=== PATIENT | female | born 1975 | race African-American/Black ===

== ENCOUNTER 2018-09-15 20:49 | Emergency (ER) | payer SELFPAY ==
[2018-09-15 21:56] LABS: Protime INR 0.92
[2018-09-15 22:13] LABS: ALT/SGPT 24 U/L (12-78); AST/SGOT 23 U/L (15-37); Albumin 3.8 g/dL (3.4-5.0); Alkaline Phosphatase 61 U/L (45-117); BUN Blood Urea Nitrogen 7 mg/dL (7-18); Bicarbonate 25 mmol/L (21-32); Bilirubin Direct 0.1 mg/dL (0-0.2); Bilirubin Total 0.4 mg/dL (0.2-1.0); Glucose Level 85 mg/dL (74-106); Lipase 126 U/L (73-393); Magnesium 1.9 mg/dL (1.8-2.4); NT PRO-BNP 72 pg/mL (<125); Potassium 3.6 mmol/L (3.5-5.1); Protein, Total 7.5 g/dL (6.4-8.2); Sodium Level 142 mmol/L (136-145); Troponin (Emerg Dept Use Only) < 0.02 ng/mL (0.0-0.045)
[2018-09-15] MEDS ORDERED: METOCLOPRAMIDE 10 MG/2mL INJ ONE (22:35)
[2018-09-15] MEDS ORDERED: DIPHENHYDRAMINE 50 MG/ML VIAL ONE (22:35)
[2018-09-15] MEDS ORDERED: FENTANYL CITR 100 MCG/2 ML ONE (22:35)
[2018-09-15 22:59] LABS: Absolute Lymphocytes (CBC) 1.7 K/uL (0.7-4.9); Absolute Monocytes 0.5 K/uL (0.1-1.3); Absolute Neutrophil 2.4 K/uL (1.8-8.0); Basophils % 0.5 % (0-1.3); Eosinophils % 0.9 % (0-4.4); Hematocrit 40.6 % (36.0-45.0); Lymphocytes % 36.6 % (15.3-44.8); MPV 8.8 fL (7.6-11.3)
[2018-09-16] MEDS ORDERED: ONDANSETRON 4 MG/2 ML VIAL ONE (01:32)
[2018-09-16] MEDS ORDERED: MEPERIDINE HCL 50 MG/ML AMP ONE (01:32)
--- NOTE | 2018-09-16 02:16 | EDPHYS ---
Physician Documentation [facility] Name: Dorothy Mohan Age: 43 yrs Sex: Female : 1975 Arrival Date: 09/15/2018 Time: 20:51 Bed 8 Private MD: ED Physician Joe Caban HPI: 09/15 23:02 This 43 yrs old Black Female presents to ER via Wheelchair with complaints of Headache, jr8 Abdominal Pain. 23:02 Patient came in with complaints of headache and abdominal pain to upper abdomen. jr8 History of Arnold Chiari malformation and has chronic headaches but feels that these are worse. Does not usually have abdominal pain . Onset: The symptoms/episode began/occurred acutely, today. Severity of symptoms: At their worst the symptoms were moderate in the emergency department the symptoms are unchanged. The patient has not experienced similar symptoms in the past. The patient has not recently seen a physician. 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 - Social history:: Smoking status: Patient uses tobacco products, denies chronic smoking, but will smoke occasionally. - Ebola Screening: : Patient negative for fever greater than or equal to 101.5 degrees Fahrenheit, and additional compatible Ebola Virus Disease symptoms. ROS: 23:02 Eyes: Negative for injury, pain, redness, and discharge, ENT: Negative for injury, jr8 pain, and discharge, Neck: Negative for injury, pain, and swelling, Cardiovascular: Negative for chest pain, palpitations, and edema, Respiratory: Negative for shortness of breath, cough, wheezing, and pleuritic chest pain, Back: Negative for injury and pain, MS/Extremity: Negative for injury and deformity, Skin: Negative for injury, rash, and discoloration. 23:02 Abdomen/GI: Positive for abdominal pain, Negative for nausea, vomiting, and diarrhea, abdominal distension, anorexia, dysphagia, hematemesis, black/tarry stool, rectal pain, rectal bleeding, bowel incontinence, flatulence. 23:02 Neuro: Positive for headache, Negative for altered mental status, dizziness, gait disturbance, hearing loss, loss of consciousness, numbness, seizure activity, speech changes, syncope, near syncope, tingling, tinnitus, tremor, visual changes, weakness. Exam: 23:04 Eyes: Pupils equal round and reactive to light, extra-ocular motions intact. Lids and jr8 lashes normal. Conjunctiva and sclera are non-icteric and not injected. Cornea within normal limits. Periorbital areas with no swelling, redness, or edema. ENT: Nares patent. No nasal discharge, no septal abnormalities noted. Tympanic membranes are normal and external auditory canals are clear. Oropharynx with no redness, swelling, or masses, exudates, or evidence of obstruction, uvula midline. Mucous membranes moist. Neck: Trachea midline, no thyromegaly or masses palpated, and no cervical lymphadenopathy. Supple, full range of motion without nuchal rigidity, or vertebral point tenderness. No Meningismus. Cardiovascular: Regular rate and rhythm with a normal S1 and S2. No gallops, murmurs, or rubs. Normal PMI, no JVD. No pulse deficits. Respiratory: Lungs have equal breath sounds bilaterally, clear to auscultation and percussion. No rales, rhonchi or wheezes noted. No increased work of breathing, no retractions or nasal flaring. Back: No spinal tenderness. No costovertebral tenderness. Full range of motion. MS/ Extremity: Pulses equal, no cyanosis. Neurovascular intact. Full, normal range of motion. Neuro: Awake and alert, GCS 15, oriented to person, place, time, and situation. Cranial nerves II-XII grossly intact. Motor strength 5/5 in all extremities. Sensory grossly intact. Cerebellar exam normal. Normal gait. 23:04 Abdomen/GI: Inspection: abdomen appears normal, Bowel sounds: active, all quadrants, Palpation: soft, in all quadrants, mild abdominal tenderness, in the abdomen diffusely, mass, is not appreciated, rebound tenderness, is not appreciated, voluntary guarding, is not appreciated, involuntary guarding, is not appreciated, no appreciated organomegaly, Indicators: McBurney's point is not tender, Peter's sign is negative, Rovsing's sign is negative, Liver: tenderness, is not appreciated. 23:04 Skin: Patient has alopecia like region to right side of head that has been there for some time per her. Mild erythema and scaling to skin . Vital Signs: 21:13 BP 152 / 125; Pulse 96; Resp 20 S; Pulse Ox 100% on R/A; Weight 86.18 kg (R); Height 5 [facility] ft. 2 in. (157.48 cm) (R); Pain 10/10; 21:40 Temp 98.8(O); tl2 21:58 BP 168 / 99; Pulse 82; Resp 20; Pulse Ox 98% on R/A; tl2 22:46 BP 141 / 83; Pulse 69; Resp 18; Pulse Ox 100% on R/A; tl2 23:00 BP 141 / 94; Pulse 66; Resp 16 S; Pulse Ox 98% on R/A; d3 09/16 01:30 BP 161 / 90; Pulse 63; Resp 17 S; Pulse Ox 100% on R/A; d3 02:48 BP 164 / 91; Pulse 65; Resp 16 S; Pulse Ox 98% on R/A; [facility] 09/15 21:13 Body Mass Index 34.75 (86.18 kg, 157.48 cm) [facility] MDM: 09/15 21:31 Patient medically screened. [facility] 09/16 02:14 Data reviewed: vital signs, nurses notes, lab test result(s), EKG, radiologic studies, [facility] CT scan, plain films, and as a result, I will discharge patient. Data interpreted: Pulse oximetry: on room air is 100 %. Interpretation: normal. Counseling: I had a detailed discussion with the patient and/or guardian regarding: the historical points, exam findings, and any diagnostic results supporting the discharge/admit diagnosis, lab results, radiology results, the need for outpatient follow up, a headlight adjuster, a family practitioner, to return to the emergency department if symptoms worsen or persist or if there are any questions or concerns that arise at home. Response to treatment: the patient's symptoms have markedly improved after treatment. 09/15 21:31 Order name: Basic Metabolic Panel [facility] 09/15 21:31 Order name: CBC with Diff; Complete Time: 23:05 [facility] 09/15 21:31 Order name: LFT's [facility] 09/15 21:31 Order name: Magnesium [facility] 09/15 21:31 Order name: NT PRO-BNP [facility] 09/15 21:31 Order name: PT-INR; Complete Time: 22:02 [facility] 09/15 21:31 Order name: Troponin (emerg Dept Use Only); Complete Time: 22:14 [facility] 09/15 21:31 Order name: XRAY Chest (1 view) [facility] 09/15 21:31 Order name: Lipase; Complete Time: 22:14 [facility] 09/15 21:32 Order name: Basic Metabolic Panel; Complete Time: 22:14 [facility] 09/15 21:32 Order name: Liver (Hepatic) Function; Complete Time: 22:14 [facility] 09/15 21:32 Order name: Magnesium; Complete Time: 22:14 [facility] 09/15 21:32 Order name: NT PRO-BNP; Complete Time: 22:14 [facility] 09/15 23:06 Order name: CT Abd/Pelvis - W/Contrast [facility] 09/15 21:31 Order name: EKG; Complete Time: 21:32 09/15 21:31 Order name: Cardiac monitoring; Complete Time: 21:55 [facility] 09/15 21:31 Order name: EKG - Nurse/Tech; Complete Time: 21:55 [facility] 09/15 21:31 Order name: IV Saline Lock; Complete Time: 21:39 [facility] 09/15 21:31 Order name: Labs collected and sent; Complete Time: 21:39 [facility] 09/15 21:31 Order name: O2 Per Protocol; Complete Time: 21:39 [facility] 09/15 21:31 Order name: O2 Sat Monitoring; Complete Time: 21:39 [facility] Administered Medications: 09/15 22:44 Drug: Reglan 10 mg Route: IVP; Site: right forearm; tl2 23:12 Follow up: Response: No adverse reaction; No change in condition tl2 22:44 Drug: Benadryl 25 mg Route: IVP; Site: right forearm; tl2 23:12 Follow up: Response: No adverse reaction; No change in condition tl2 22:45 Drug: fentaNYL (PF) 50 mcg Route: IVP; Site: right forearm; tl2 23:13 Follow up: Response: No adverse reaction; Pain is unchanged, physician notified tl2 23:11 Drug: fentaNYL (PF) 50 mcg Route: IVP; Site: right forearm; tl2 09/16 02:49 Follow up: Response: No adverse reaction jd3 01:29 Drug: Demerol 50 mg Route: IVP; Site: right antecubital; jd3 02:49 Follow up: Response: No adverse reaction jd3 01:29 Drug: Zofran 4 mg Route: IVP; Site: right antecubital; jd3 02:50 Follow up: Response: No adverse reaction jd3 Disposition: 03:40 Co-signature as Attending Physician, Joe Caban MD Available for consultation at ps1 all times . Disposition: 09/16/18 02:15 Discharged to Home. Impression: Migraine, Generalized abdominal pain, Rash and other nonspecific skin eruption. - Condition is Stable. - Discharge Instructions: Migraine Headache, Rash. - Prescriptions for Tylenol- Codeine #3 300-30 mg Oral Tablet - take 2 tablets by ORAL route every 6 hours As needed; 12 tablet. Hydrocortisone 0.5 % Topical Cream - apply 1 application by TOPICAL route every 12 hours As needed; 30 gram. - Medication Reconciliation Form, Thank You Letter, Antibiotic Education, Prescription Opioid Use form. - Follow up: Private Physician; When: 2 - 3 days; Reason: Recheck today's complaints, Continuance of care, Re-evaluation by your physician. - Problem is new. - Symptoms have improved. Signatures: Dispatcher [employer] EDMS Denis Ayoub PA PA jr8 Elsy Jaimes RN RN tl2 Reid Martin RN RN Joe Khanna MD MD ps1 Corrections: (The following items were deleted from the chart) 02:50 02:15 09/16/2018 02:15 Discharged to Home. Impression: Migraine; Generalized abdominal jd3 pain; Rash and other nonspecific skin eruption. Condition is Stable. Forms are Medication Reconciliation Form, Thank You Letter, Antibiotic Education, Prescription Opioid Use. Follow up: Private Physician; When: 2 - 3 days; Reason: Recheck today's complaints, Continuance of care, Re-evaluation by your physician. Problem is new. Symptoms have improved. jr8
--- NOTE | 2018-09-16 02:16 | ER ---
Nurse's Notes [facility] Name: Dorothy Mohan Age: 43 yrs Sex: Female : 1975 Arrival Date: 09/15/2018 Time: 20:51 Bed 8 Private MD: Diagnosis: Migraine;Generalized abdominal pain;Rash and other nonspecific skin eruption Presentation: 09/15 21:11 Presenting complaint: Patient states: "I am having a pins and needles headache and jd3 epigastric pain with nausea and vomiting.". Transition of care: patient was not received from another setting of care. Onset of symptoms was September 15, 2018. Risk Assessment: Do you want to hurt yourself or someone else? Patient reports no desire to harm self or others. Initial Sepsis Screen: Does the patient meet any 2 criteria? No. Patient's initial sepsis screen is negative. Does the patient have a suspected source of infection? No. Patient's initial sepsis screen is negative. Care prior to arrival: None. 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 - Social history:: Smoking status: Patient uses tobacco products, denies chronic smoking, but will smoke occasionally. - Ebola Screening: : Patient negative for fever greater than or equal to 101.5 degrees Fahrenheit, and additional compatible Ebola Virus Disease symptoms. Screenin:58 Abuse screen: Denies threats or abuse. Nutritional screening: No deficits noted. tl2 Tuberculosis screening: No symptoms or risk factors identified. Fall Risk None identified. Assessment: 21:58 General: Appears in no apparent distress. uncomfortable, Behavior is crying, restless. tl2 Pain: Complains of pain in epigastric area Pain does not radiate. Pain: Noted to be grimacing, guarding, moaning. Neuro: Level of Consciousness is awake, alert, obeys commands, Oriented to person, place, time, situation. Cardiovascular: Denies chest pain. Respiratory: Airway is patent Respiratory effort is even, unlabored, Respiratory pattern is regular, symmetrical. GI: Reports nausea, vomiting. : No signs and/or symptoms were reported regarding the genitourinary system. Derm: Skin is pink, warm \\T\\ dry. 09/16 01:30 Reassessment: Patient appears in no apparent distress at this time. No changes from [facility] previously documented assessment. Patient and/or family updated on plan of care and expected duration. Pain level reassessed. Patient is alert, oriented x 3, equal unlabored respirations, skin warm/dry/pink. 02:48 Reassessment: Patient appears in no apparent distress at this time. Patient and/or [facility] family updated on plan of care and expected duration. Pain level reassessed. Patient is alert, oriented x 3, equal unlabored respirations, skin warm/dry/pink. Patient states feeling better. Vital Signs: 09/15 21:13 BP 152 / 125; Pulse 96; Resp 20 S; Pulse Ox 100% on R/A; Weight 86.18 kg (R); Height 5 j ft. 2 in. (157.48 cm) (R); Pain 10/10; 21:40 Temp 98.8(O); tl2 21:58 BP 168 / 99; Pulse 82; Resp 20; Pulse Ox 98% on R/A; tl2 22:46 BP 141 / 83; Pulse 69; Resp 18; Pulse Ox 100% on R/A; tl2 23:00 BP 141 / 94; Pulse 66; Resp 16 S; Pulse Ox 98% on R/A; jd3 09/16 01:30 BP 161 / 90; Pulse 63; Resp 17 S; Pulse Ox 100% on R/A; jd3 02:48 BP 164 / 91; Pulse 65; Resp 16 S; Pulse Ox 98% on R/A; jd3 09/15 21:13 Body Mass Index 34.75 (86.18 kg, 157.48 cm) [facility] ED Course: 09/15 20:51 Patient arrived in ED. mr 21:12 Triage completed. jd3 21:14 Arm band placed on. jd3 21:31 Denis Ayoub PA is PHCP. jr8 21:31 Joe Caban MD is Attending Physician. jr8 21:39 Elsy Jaimes RN is Primary Nurse. tl2 21:54 XRAY Chest (1 view) In Process Unspecified. EDMS 21:58 Patient has correct armband on for positive identification. Placed in gown. Bed in low tl2 position. Call light in reach. Side rails up X 1. Adult w/ patient. 21:58 Inserted saline lock: 22 gauge in right forearm, using aseptic technique. Blood tl2 collected. 09/16 00:17 Radiology exam delayed due to test not completed at this time. kw1 00:[address] via wheelchair. kw1 00:51 CT Abd/Pelvis - W/Contrast In Process Unspecified. EDMS 00:52 CT completed. Patient tolerated procedure well. Patient moved back from CT. kw1 02:48 No provider procedures requiring assistance completed. IV discontinued, intact, jd3 bleeding controlled, No redness/swelling at site. Pressure dressing applied. Administered Medications: 09/15 22:44 Drug: Reglan 10 mg Route: IVP; Site: right forearm; tl2 23:12 Follow up: Response: No adverse reaction; No change in condition tl2 22:44 Drug: Benadryl 25 mg Route: IVP; Site: right forearm; tl2 23:12 Follow up: Response: No adverse reaction; No change in condition tl2 22:45 Drug: fentaNYL (PF) 50 mcg Route: IVP; Site: right forearm; tl2 23:13 Follow up: Response: No adverse reaction; Pain is unchanged, physician notified tl2 23:11 Drug: fentaNYL (PF) 50 mcg Route: IVP; Site: right forearm; tl2 09/16 02:49 Follow up: Response: No adverse reaction jd3 01:29 Drug: Demerol 50 mg Route: IVP; Site: right antecubital; jd3 02:49 Follow up: Response: No adverse reaction jd3 01:29 Drug: Zofran 4 mg Route: IVP; Site: right antecubital; jd3 02:50 Follow up: Response: No adverse reaction jd3 Outcome: 02:15 Discharge ordered by jrAzucena 02:48 Discharged to home ambulatory, with family. jd3 02:48 Condition: stable 02:48 Discharge instructions given to patient, family, Instructed on discharge instructions, follow up and referral plans. medication usage, Demonstrated understanding of instructions, follow-up care, medications, Prescriptions given X 2. 02:50 Patient left the ED. jd3 Signatures: Dispatcher [employer] ED Lorena Cameron mr LouiseDenis heard PA PA jr8 Elsy Jaimes RN RN tl2 Reid Martin RN RN jd3 Ronda Mitchell kw1 Corrections: (The following items were deleted from the chart) 00:31 00:30 BP 141 / 94; Pulse 66bpm; Resp 16bpm; Spontaneous; Pulse Ox 98% RA; irvin jamanda
--- NOTE | 2018-09-16 08:01 | RAD REPORT ---
EXAM DESCRIPTION: RAD - Chest Single View - 09/15/2018 9:56 pm CLINICAL HISTORY: Chest pain COMPARISON: July 2015 TECHNIQUE: AP portable chest image was obtained 2155 hours . FINDINGS: Lungs are clear. Heart and vasculature are normal. No measurable pleural effusion and no p neumothorax. No acute bony abnormality seen. No acute aortic findings suspected. IMPRESSION: No acute cardiopulmonary process. No significant interval change.
--- NOTE | 2018-09-16 08:49 | RAD REPORT ---
EXAM DESCRIPTION: CT - Abdomen Pelvis W Contrast - 09/16/2018 5:21 am CLINICAL HISTORY: Abdominal pain, epigastric pain A preliminary report was provided at the time of the study and reviewed prior to final report. COMPARISON: CT study July 2015 TECHNIQUE: Biphasic, helical CT imaging of the abdomen and pelvis was performed following 100 ml non -ionic IV contrast. No oral contrast administered. All CT scans are performed using dose optimization technique as appropriate and may include automated exposure control or mA/KV adjustment according to patient size. FINDINGS: No suspicious findings in the lung bases. The liver, spleen, and pancreas show no suspicious findings. Gallbladder and biliary tree are also wi thout suspicious finding. Symmetric renal function is seen with no hydronephrosis or suspicious renal mass. No pyelonephritis o r acute parenchymal process. No bladder abnormalities. No adrenal abnormalities. No dilated bowel loops or bowel wall thickening. No free air, free fluid or inflammatory stranding. No hernia, mass or bulky lymphadenopathy. A 3.3 centimeter right ovarian cyst is present. No solid mass of either ovary suspected. Patient has a prominent heterogeneous uterus. Pattern is generally similar to 2015. There is a dominant fundal fi broid approximately 4.5 cm in size. An additional lower left fibroid approximately 2.5 cm in size. Lo wer anterior fibroid approximately 16 mm in size. Endometrial stripe is displaced by the fundal fibro id. Overall, CT imaging is limited for assessing endometrial and myometrial findings. An acute proces s is doubtful given the provided clinical history. Follow-up can be obtained as clinical findings war rant. No acute or destructive bone process. Sclerotic changes are present in the L4 and L5 bodies not suspe cted to be malignant. Patient has a prominent lower lumbar degenerative pattern. There are sclerotic changes abutting the left SI joint. IMPRESSION: No obstruction, free air or surgically emergent finding. No acute CT abdomen or pelvis f inding noted. Patient has a prominent multi fibroid heterogeneous uterus. Pattern is not substantially different fr om 2015 though fibroids may have slightly enlarged. CT imaging is limited in the uterus. Followup end ovaginal pelvic sonography can be performed as warranted. A 3.3 centimeter right ovarian cyst is present with no suspicious characteristics. Patient has advanced for age lower lumbar spine degenerative change. There is left sacroiliitis curry es as well. The sclerotic changes in L4 and L5 are new from 2015 but still favored to be from a degen erative etiology rather than a blastic neoplastic process.
--- NOTE | 2018-09-16 11:24 | EKG ---
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
== END 2018-09-16 02:50 | disposition home or self-care (01) ==
LOC: ER 20:49
DX: G43.909 Migraine, unspecified, not intractable, without status migrainosus (principal); R10.84 Generalized abdominal pain; R21 Rash and other nonspecific skin eruption; Z72.0 Tobacco use; Z88.0 Allergy status to penicillin
CPT/HCPCS: 36415; 71045; 74177; 80048; 80076; 83690; 83735; 83880; 84484; 85025; 85610; 93005; J2175; J2405; J2765; J3010; Q9967

== ENCOUNTER 2018-09-16 18:57 | Emergency (ER) | payer SELFPAY ==
[2018-09-16] MEDS ORDERED: MAGNE/ALUM HYDROXD 30 ML UCUP ONE (22:30)
[2018-09-16] MEDS ORDERED: DIPHENHYDRAMINE 25 MG TAB/CAP ONE (22:31)
[2018-09-16] MEDS ORDERED: HALOPERIDOL LACT 5 MG/ML INJ ONE (22:31)
[2018-09-16] MEDS ORDERED: NA CHLORIDE 0.9% 500 ML ONE (22:31)
[2018-09-16] MEDS ORDERED: ONDANSETRON 4 MG/2 ML VIAL ONE (22:31)
[2018-09-16] MEDS ORDERED: LIDOCAINE VISCOUS 2% SOLN 15 ML UDC ONE (22:32)
[2018-09-16] MEDS ORDERED: DICYCLOMINE HCL 20 MG/2 ML AMP IM ONE (22:41)
[2018-09-16 23:04] LABS: Absolute Lymphocytes (CBC) 1.3 K/uL (0.7-4.9); Absolute Monocytes 0.5 K/uL (0.1-1.3); Absolute Neutrophil 3.1 K/uL (1.8-8.0); Basophils % 0.5 % (0-1.3); Eosinophils % 0.3 % (0-4.4); Hematocrit 43.9 % (36.0-45.0); Lymphocytes % 26.7 % (15.3-44.8); MPV 9.3 fL (7.6-11.3); Monocytes % 10.1 % (3.3-12.3); RBC Red Blood Cell Count 4.56 M/uL (3.86-4.86)
[2018-09-16 23:08] LABS: ALT/SGPT 26 U/L (12-78); AST/SGOT 20 U/L (15-37); Albumin 4.2 g/dL (3.4-5.0); Alkaline Phosphatase 70 U/L (45-117); BUN Blood Urea Nitrogen 5 mg/dL (7-18); Bicarbonate 23 mmol/L (21-32); Bilirubin Total 0.6 mg/dL (0.2-1.0); Glucose Level 90 mg/dL (74-106); Lipase 101 U/L (73-393); Potassium 3.7 mmol/L (3.5-5.1); Protein, Total 8.3 g/dL (6.4-8.2); Sodium Level 138 mmol/L (136-145)
--- NOTE | 2018-09-16 23:16 | ER ---
Nurse's Notes [facility] Name: Dorothy Mohan Age: 43 yrs Sex: Female : 1975 Arrival Date: 09/16/2018 Time: 19:00 Bed 11 Private MD: Diagnosis: Other abdominal pain Presentation: 09/16 19:20 Presenting complaint: Patient states: Headache with upper abdominal pain and nausea aj that did not improve after discharge from this ED last night. Transition of care: patient was not received from another setting of care. Onset of symptoms was September 13, 2018. Risk Assessment: Do you want to hurt yourself or someone else? Patient reports no desire to harm self or others. Initial Sepsis Screen: Does the patient meet any 2 criteria? No. Patient's initial sepsis screen is negative. Does the patient have a suspected source of infection? No. Patient's initial sepsis screen is negative. Care prior to arrival: None. 19:20 Method Of Arrival: Ambulatory aj 19:20 Acuity: STEPHANIE 4 aj Triage Assessment: 19:22 General: Appears in no apparent distress. uncomfortable, Behavior is calm, cooperative, aj appropriate for age. Pain: Complains of pain in face and abdomen. Neuro: Level of Consciousness is awake, alert, obeys commands, Oriented to person, place, time, situation, Appropriate for age Reports headache. Respiratory: Airway is patent Respiratory effort is even, unlabored, Respiratory pattern is regular, symmetrical. GI: Reports upper abdominal pain, nausea. Derm: Skin is intact, is healthy with good turgor, Skin is pink, warm \T\ dry. normal. 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 - Social history:: Smoking status: Patient uses tobacco products, smokes one-half pack cigarettes per day. - Ebola Screening: : Patient negative for fever greater than or equal to 101.5 degrees Fahrenheit, and additional compatible Ebola Virus Disease symptoms Patient denies exposure to infectious person Patient denies travel to an Ebola-affected area in the 21 days before illness onset No symptoms or risks identified at this time. Screenin:10 Abuse screen: Denies threats or abuse. Nutritional screening: No deficits noted. bb Tuberculosis screening: No symptoms or risk factors identified. Fall Risk None identified. Assessment: 21:10 General: Appears uncomfortable, obese, Behavior is cooperative, anxious. Pain: bb Complains of pain in abdomen Pain currently is 10 out of 10 on a pain scale. Neuro: Level of Consciousness is awake, alert, obeys commands, Oriented to person, place, time, situation. Cardiovascular: Heart tones S1 S2 present Capillary refill < 3 seconds Patient's skin is warm and dry. Respiratory: Respiratory effort is even, unlabored, Respiratory pattern is regular, Breath sounds are clear bilaterally. GI: Abdomen is round Bowel sounds present X 4 quads. Abd is soft X 4 quads Abdomen is tender to palpation in epigastric area. Derm: Skin is dry, Skin is normal, Skin temperature is warm. Musculoskeletal: Circulation, motion, and sensation intact. 22:30 Reassessment: Patient and/or family updated on plan of care and expected duration. Pain bb level reassessed. Patient is alert, oriented x 3, equal unlabored respirations, skin warm/dry/pink. IV site intact, patent with fluids infusing family at bedside. 23:30 Reassessment: Patient and/or family updated on plan of care and expected duration. Pain bb level reassessed. Patient is alert, oriented x 3, equal unlabored respirations, skin warm/dry/pink. pt verbalized understanding of and agrees to plan of care discharge instructions given pt ambulated with steady gait accompanied by family Patient states feeling better. Vital Signs: 19:22 BP 111 / 65; Pulse 77; Resp 20; Temp 98.0; Pulse Ox 99% on R/A; Weight 86.18 kg; Height aj 5 ft. 2 in. (157.48 cm); 21:10 BP 157 / 73; Pulse 73; Resp 18 S; Temp 97.6(O); Pulse Ox 98% on R/A; Pain 10/10; bb 23:30 BP 157 / 95; Pulse 65; Resp 16 S; Temp 97.8(O); Pulse Ox 98% on R/A; Pain 5/10; bb 19:22 Body Mass Index 34.75 (86.18 kg, 157.48 cm) ED Course: 19:00 Patient arrived in ED. mr 19:22 Triage completed. aj 19:22 Arm band placed on left wrist. Patient placed in waiting room. aj 21:10 Patient has correct armband on for positive identification. Call light in reach. Adult bb w/ patient. 21:10 No provider procedures requiring assistance completed. bb 21:23 Harper Luna, RN is Primary Nurse. bb 21:25 Joe Caban MD is Attending Physician. ps1 22:25 Missed attempt(s): 22 gauge in right antecubital area. Bleeding controlled, band aid jp3 applied, catheter tip intact. 22:30 Initial lab(s) drawn, by me, sent to lab. Flu and/or RSV swab sent to lab. Inserted jp3 saline lock: 24 gauge in left antecubital area, using aseptic technique. Blood collected. 22:34 Lipase Sent. jp3 22:34 CMP Sent. jp3 22:34 CBC with Diff Sent. jp3 22:34 Flu Sent. jp3 23:30 IV discontinued, intact, bleeding controlled, No redness/swelling at site. Pressure bb dressing applied. Administered Medications: 21:20 Drug: Benadryl 50 mg Route: PO; bb 22:15 Follow up: Response: Marked relief of symptoms bb 21:20 Drug: NS 0.9% 500 ml Route: IV; Rate: bolus; Site: left antecubital; bb 23:20 Follow up: IV Status: Order to discontinue infusion; IV Intake: 250ml bb 21:20 Drug: GI Cocktail without - (Maalox Suspension 30 ml, Lidocaine Liquid 2 % 15 bb ml) Route: PO; 21:30 Follow up: Response: pt vomited after drinking GI cocktail bb 21:22 Drug: Bentyl 20 mg Route: IM; Site: right gluteus; bb 22:15 Follow up: Response: Marked relief of symptoms bb 21:30 Drug: Zofran 4 mg Route: IVP; Site: left antecubital; bb 22:30 Follow up: Response: No adverse reaction bb 21:43 CANCELLED (change in route): Haldol 5 mg PO once ps1 22:52 Drug: HALdol 5 mg {Note: given IM per Dr Caban to right upper arm.} Route: IVP; Site: bb Other; 23:15 Follow up: Response: Marked relief of symptoms bb 22:53 CANCELLED (Other Intervention Used): Zofran 4 mg PO once bb Intake: 23:20 IV: 250ml; Total: 250ml. bb Outcome: 23:15 Discharge ordered by . ps1 09/17 00:04 Discharged to home ambulatory, with family. bb Condition: stable Discharge instructions given to patient, Instructed on discharge instructions, follow up and referral plans. medication usage, Demonstrated understanding of instructions, follow-up care, Prescriptions given X 2. 00:04 Patient left the ED. bb Signatures: Scarlett Lay, RN Lorena Soto Brenda, RN RN bb Singer, Phillip, MD MD ps1 Owen Vo jp3
--- NOTE | 2018-09-16 23:16 | EDPHYS ---
Physician Documentation [facility] Name: Dorothy Mohan Age: 43 yrs Sex: Female : 1975 Arrival Date: 09/16/2018 Time: 19:00 Bed 11 Private MD: ED Physician Joe Caban HPI: 09/16 23:16 This 43 yrs old Black Female presents to ER via Ambulatory with complaints of Abdominal ps1 Pain, Headache. 23:16 patient was seen and evaluated for same yesterday and had full workup. No acute ps1 findings. Says that she has had repeated vomiting since medication wore off. Now complaining of epigastric pain. Neg lipase yesterday. Hx of pancreatitis before in past. States pain is worse with vomiting. Unable to keep down foods reportedly. . 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 - Social history:: Smoking status: Patient uses tobacco products, smokes one-half pack cigarettes per day. - Ebola Screening: : Patient negative for fever greater than or equal to 101.5 degrees Fahrenheit, and additional compatible Ebola Virus Disease symptoms Patient denies exposure to infectious person Patient denies travel to an Ebola-affected area in the 21 days before illness onset No symptoms or risks identified at this time. ROS: 23:16 Constitutional: Negative for fever, chills, and weight loss, Eyes: Negative for injury, ps1 pain, redness, and discharge, ENT: Negative for injury, pain, and discharge, Cardiovascular: Negative for chest pain, palpitations, and edema, Respiratory: Negative for shortness of breath, cough, wheezing, and pleuritic chest pain, MS/Extremity: Negative for injury and deformity, Skin: Negative for injury, rash, and discoloration. 23:16 Abdomen/GI: Positive for abdominal pain, nausea and vomiting. 23:16 Neuro: Positive for headache. Exam: 23:16 Constitutional: This is a well developed, well nourished patient who is awake, alert, ps1 and in no acute distress. 23:16 Head/Face: Normocephalic, atraumatic. Eyes: Pupils equal round and reactive to light, extra-ocular motions intact. Lids and lashes normal. Conjunctiva and sclera are non-icteric and not injected. Chest/axilla: Normal chest wall appearance and motion. Nontender with no deformity. No lesions are appreciated. Cardiovascular: Regular rate and rhythm. No gallops, murmurs, or rubs. Normal PMI, no JVD. No pulse deficits. Respiratory: Lungs have equal breath sounds bilaterally, clear to auscultation and percussion. No rales, rhonchi or wheezes noted. No increased work of breathing, no retractions or nasal flaring. Abdomen/GI: Soft, non-tender, with normal bowel sounds. No distension or tympany. No guarding or rebound. No evidence of tenderness throughout. Skin: Warm, dry with normal turgor. Normal color with no rashes, no lesions, and no evidence of cellulitis. MS/ Extremity: Pulses equal, no cyanosis. Neurovascular intact. Full, normal range of motion. Neuro: Awake and alert, GCS 15, oriented to person, place, time, and situation. Cranial nerves II-XII grossly intact. Sensory grossly intact. Psych: Awake, alert, with orientation to person, place and time. Behavior, mood, and affect are within normal limits. 23:16 Head/face: post surgical scar on right occiput other weinstein NC/AT. Vital Signs: 19:22 BP 111 / 65; Pulse 77; Resp 20; Temp 98.0; Pulse Ox 99% on R/A; Weight 86.18 kg; Height aj 5 ft. 2 in. (157.48 cm); 21:10 BP 157 / 73; Pulse 73; Resp 18 S; Temp 97.6(O); Pulse Ox 98% on R/A; Pain 10/10; bb 23:30 BP 157 / 95; Pulse 65; Resp 16 S; Temp 97.8(O); Pulse Ox 98% on R/A; Pain 5/10; bb 19:22 Body Mass Index 34.75 (86.18 kg, 157.48 cm) aj MDM: 21:46 Patient medically screened. ps1 23:16 Data reviewed: vital signs, nurses notes, lab test result(s), and as a result, I will ps1 discharge patient. Medication response: haldol, bentyl, zofran. Feels completely better. 09/16 21:45 Order name: Flu ps1 09/16 21:45 Order name: CBC with Diff ps1 09/16 21:45 Order name: CMP ps1 09/16 21:45 Order name: Lipase ps1 09/16 23:06 Order name: CBC with Automated Diff; Complete Time: 23:09 EDMS 09/16 23:08 Order name: Comprehensive Metabolic Panel; Complete Time: 23:09 EDMS 09/16 23:08 Order name: Lipase; Complete Time: 23:09 EDMS Administered Medications: 21:20 Drug: Benadryl 50 mg Route: PO; bb 22:15 Follow up: Response: Marked relief of symptoms bb 21:20 Drug: NS 0.9% 500 ml Route: IV; Rate: bolus; Site: left antecubital; bb 23:20 Follow up: IV Status: Order to discontinue infusion; IV Intake: 250ml bb 21:20 Drug: GI Cocktail without - (Maalox Suspension 30 ml, Lidocaine Liquid 2 % 15 bb ml) Route: PO; 21:30 Follow up: Response: pt vomited after drinking GI cocktail bb 21:22 Drug: Bentyl 20 mg Route: IM; Site: right gluteus; bb 22:15 Follow up: Response: Marked relief of symptoms bb 21:30 Drug: Zofran 4 mg Route: IVP; Site: left antecubital; bb 22:30 Follow up: Response: No adverse reaction bb 21:43 CANCELLED (change in route): Haldol 5 mg PO once ps1 22:52 Drug: HALdol 5 mg {Note: given IM per Dr Caban to right upper arm.} Route: IVP; Site: Other; 23:15 Follow up: Response: Marked relief of symptoms bb 22:53 CANCELLED (Other Intervention Used): Zofran 4 mg PO once bb Disposition: 09/16/18 23:15 Discharged to Home. Impression: Other abdominal pain. - Condition is Stable. - Discharge Instructions: Abdominal Pain, Adult. - Prescriptions for Bentyl 10 mg Oral Capsule - take 1 capsule by ORAL route every 6 hours As needed; 40 capsule. Zofran 4 mg Oral Tablet - take 1 tablet by ORAL route every 12 hours As needed; 20 tablet. - Medication Reconciliation Form, Thank You Letter, Antibiotic Education, Prescription Opioid Use form. - Follow up: Private Physician; When: As needed; Reason: Recheck today's complaints, Continuance of care, Re-evaluation by your physician. Follow up: Emergency Department; When: As needed; Reason: Fever > 102 F, Worsening of condition. Signatures: Dispatcher [employer] EDScarlett Rodriguez RN RN aj Ballard, Brenda, RN RN bb Singer, Phillip, MD MD ps1 Corrections: (The following items were deleted from the chart) 21:43 21:42 Haldol 5 mg PO once ordered. ps1 ps1 22:53 21:42 Zofran 4 mg PO once ordered. ps1 bb 09/17 00:04 09/16 23:15 09/16/2018 23:15 Discharged to Home. Impression: Other abdominal pain. bb Condition is Stable. Forms are Medication Reconciliation Form, Thank You Letter, Antibiotic Education, Prescription Opioid Use. Follow up: Private Physician; When: As needed; Reason: Recheck today's complaints, Continuance of care, Re-evaluation by your physician. Follow up: Emergency Department; When: As needed; Reason: Fever > 102 F, Worsening of condition. ps1
== END 2018-09-17 00:04 | disposition home or self-care (01) ==
LOC: ER 18:57
DX: R10.9 Unspecified abdominal pain (principal); Z88.0 Allergy status to penicillin
CPT/HCPCS: 36415; 80053; 83690; 85025; 87804; J0500; J1630; J2405